=== PATIENT | female | born 1995 | race African-American/Black ===

== ENCOUNTER 2017-11-02 03:22 | Inpatient (IN) | payer OTHER ==
[2017-11-02] MEDS ORDERED: AMPICILLIN - 2 GM in SODIUM CHLORIDE 100 ML IVPB ONE (04:00)
[2017-11-02] MEDS: DEXTROSE 5%-LACTATED RINGERS 1,000 ML IV SCH (04:00)
[2017-11-02] MEDS ORDERED: PROMETHAZINE HCL 25 MG/1 ML VIAL ONE ×2 (04:12→10:03)
[2017-11-02] MEDS ORDERED: BUTORPHANOL TARTRATE 1 MG/ML VIAL ONE ×4 (04:12→10:03)
[2017-11-02 04:17] LABS: BASO % 0.2 % (0-2.0); EOS % 1.3 % (0-4.5); HEMATOCRIT 30.8 % (32.4-45.2); HEMOGLOBIN 10.1 GM/dL (10.7-15.3); LYMPH % 25.1 % (8-40); MCH 26.7 pg (25.7-33.7); MCHC 32.7 g/dl (32.0-36.0); MEAN CELL VOLUME 81.9 fl (80-96); MONO % 11.4 % (3.8-10.2); PLATELET COUNT 203 K/MM3 (134-434); RBC 3.76 M/mm3 (3.60-5.2); RDW 14.1 % (11.6-15.6); WHITE BLOOD COUNT 5.8 K/mm3 (4.0-10.0)
[2017-11-02 04:30] LABS: INR 0.9 (0.82-1.09); PROTHROMBIN TIME (PATIENT) 10.2 SEC (9.98-11.88)
[2017-11-02] MEDS ORDERED: BUTORPHANOL TARTRATE 1 MG/ML VIAL IVPB ONE ×2 (04:30→10:45)
[2017-11-02] MEDS ORDERED: PROMETHAZINE HCL 25 MG/1 ML VIAL IVPB ONE ×2 (04:30→10:45)
[2017-11-02 04:32] LABS: ACTIVATED PTT 26.8 SECONDS (26.9-34.4)
[2017-11-02 04:39] LABS: ANION GAP 13 (8-16); BLOOD UREA NITROGEN 6 mg/dL (7-18); CALCIUM 9.3 mg/dL (8.5-10.1); CHLORIDE 104 mmol/L (98-107); CO2 21 mmol/L (21-32); CREATININE 0.6 mg/dL (0.55-1.02); GLUCOSE,RANDOM 91 mg/dL (74-106); SODIUM 138 mmol/L (136-145)
[2017-11-02 05:20] VITALS: BMI 22.7
[2017-11-02] MEDS ORDERED: AMPICILLIN SODIUM 1 GM VIAL ONE ×2 (07:51→20:57)
[2017-11-02] MEDS: AMPICILLIN - 1 GM in SODIUM CHLORIDE 100 ML IVPB SCH ×3 (07:57→15:44)
[2017-11-02] MEDS ORDERED: TUBERCULIN PPD 5 TU/0.1ML SYRINGE (IN PATIENT USE ONLY) ID ONE (10:00)
--- NOTE | 2017-11-02 22:31 | PN ---
Ante-Partal Exam - Subjective Subjective: Pt sleeping Vital Signs: Vital Signs Temperature 98.6 F 11/02/17 22:00 Pulse Rate 77 11/02/17 22:00 Respiratory Rate 18 11/02/17 22:00 Blood Pressure 109/55 11/02/17 22:00 O2 Sat by Pulse Oximetry (%) Bleeding: No Headache: No Visual changes: No Right upper quadrant pain: No - Contractions Contractions: No Regularity: Irregular Intensity: Mild Monitor Mode: External - Exam during Labor Category: I Monitor Decelerations: None Exam: Vaginal Dilatation (cm): 5 Effacement (%): 90 Amniotic Membrane Status: Intact Presentation: Vertex Station: -1 - Intrapartum Hemorrhage Risk Risk Score: 0 Risk Level: Low Risk - Assessment/Plan Assessment/Plan: 37 week Cat 1 contractions Plan Continue observation
[2017-11-03] MEDS ORDERED: AMPICILLIN SODIUM 1 GM VIAL ONE ×5 (00:52→16:27)
[2017-11-03] MEDS: AMPICILLIN - 1 GM in SODIUM CHLORIDE 100 ML IVPB SCH ×7 (00:57→22:30)
[2017-11-03] MEDS: DEXTROSE 5%-LACTATED RINGERS 1,000 ML IV SCH ×2 (01:00→10:36)
[2017-11-03] MEDS ORDERED: DEXTROSE 5%-LACTATED RINGERS 1,000 ML IV ONE (01:00)
[2017-11-03] MEDS ORDERED: BUTORPHANOL TARTRATE 1 MG/ML VIAL IVPB ONE (16:45)
[2017-11-03] MEDS ORDERED: PROMETHAZINE HCL 25 MG/1 ML VIAL IVPB ONE (16:45)
[2017-11-03] MEDS ORDERED: BUTORPHANOL TARTRATE 1 MG/ML VIAL ONE ×2 (16:52)
[2017-11-03] MEDS ORDERED: PROMETHAZINE HCL 25 MG/1 ML VIAL ONE (16:53)
[2017-11-03] MEDS ORDERED: OXYTOCIN 20 UNITS in 0.9% NS 20 UNIT/1,000 ML INFUS.BAG IV ONE (19:02)
[2017-11-03] MEDS ORDERED: WITCH HAZEL 50% (TUCKS) 40 PAD/JAR PAD TP PRN (19:54)
[2017-11-03] MEDS ORDERED: BENZOCAINE 28 GM HEMORRHOIDAL OINTMENT TP PRN (19:54)
[2017-11-03] MEDS ORDERED: BENZOCAINE 20% 57 GM BOTTLE TP PRN (19:54)
[2017-11-03] MEDS ORDERED: METHYLERGONOVINE MALEATE 0.2 MG/1 ML AMP IM PRN (19:54)
[2017-11-03] MEDS ORDERED: BISACODYL 10 MG SUPP.RECT RC PRN (19:54)
--- NOTE | 2017-11-03 19:56 | PN ---
Delivery - Delivery Vaginal Delivery: Spontaneous Type of Anesthesia: Local Episiotomy/Laceration: None EBL (cc): 300 Delivery, Single - Orient Feeding Plan Initial Plan: Exclusive throughout hospitalization
[2017-11-03] MEDS ORDERED: OXYTOCIN 20 UNITS in 0.9% NS 20 UNIT/1,000 ML INFUS.BAG IV SCH (20:00)
[2017-11-03] MEDS ORDERED: IBUPROFEN 600 MG TABLET (FP) PO ONE (20:26)
[2017-11-03] MEDS ORDERED: ACETAMINOPHEN 325 MG TABLET (FP) ONE (20:26)
[2017-11-03] MEDS: IBUPROFEN 600 MG TABLET (FP) PO PRN (20:29)
[2017-11-03] MEDS: ACETAMINOPHEN 325 MG TABLET (FP) PO PRN (20:30)
[2017-11-04] MEDS: ACETAMINOPHEN 325 MG TABLET (FP) PO PRN ×2 (00:15→20:20)
[2017-11-04] MEDS: IBUPROFEN 600 MG TABLET (FP) PO PRN ×3 (00:16→20:19)
[2017-11-04 07:46] LABS: BASO % 0.3 % (0-2.0); EOS % 0.5 % (0-4.5); HEMATOCRIT 26.9 % (32.4-45.2); HEMOGLOBIN 8.6 GM/dL (10.7-15.3); LYMPH % 15.8 % (8-40); MCH 26.4 pg (25.7-33.7); MCHC 32.1 g/dl (32.0-36.0); MEAN CELL VOLUME 82.2 fl (80-96); MEAN PLT VOLUME 9.4 fl (7.5-11.1); MONO % 9.6 % (3.8-10.2); NEUT % 73.8 % (42.8-82.8); PLATELET COUNT 172 K/MM3 (134-434); RBC 3.27 M/mm3 (3.60-5.2); RDW 14.6 % (11.6-15.6)
[2017-11-04] MEDS: FERROUS SO4 325 MG TABLET (FP) PO SCH ×3 (08:32→17:49)
[2017-11-04] MEDS ORDERED: DIPHTH,PERTUSS(ACELL),TET 0.5 ML DISP.SYRIN IM ONE (10:00)
[2017-11-04] MEDS ORDERED: FLU VACC QS2017-18 36MOS UP/PF 60 MCG/0.5 ML SYRINGE IM ONE (10:00)
--- NOTE | 2017-11-04 11:36 | PN ---
Post Progress Note - Subjective Subjective: 22 yo Para 3 status post vaginal delivery, seen and evaluated. Doing well. Post Day: 1 Type of Delivery: Vital Signs: Vital Signs Temperature 98.5 F 11/04/17 08:00 Pulse Rate 75 11/04/17 08:00 Respiratory Rate 17 11/04/17 08:00 Blood Pressure 121/72 11/04/17 08:00 O2 Sat by Pulse Oximetry (%) 100 11/03/17 20:45 Breast Exam: Yes: Soft Uterus: Yes: Fundus Firm Abdomen/GI: Yes: Abdomen soft, Tolerating PO Lochia: Yes: Rubra Lochia, amount: Moderate Extremities: Yes: Calves non-tender Perineum: Yes: Intact Activity: Ambulating - Labs Labs: CBC WBC 9.0 K/mm3 (4.0-10.0) D 11/04/17 06:50 RBC 3.27 M/mm3 (3.60-5.2) L 11/04/17 06:50 Hgb 8.6 GM/dL (10.7-15.3) L D 11/04/17 06:50 Hct 26.9 % (32.4-45.2) L 11/04/17 06:50 MCV 82.2 fl (80-96) 11/04/17 06:50 MCH 26.4 pg (25.7-33.7) 11/04/17 06:50 MCHC 32.1 g/dl (32.0-36.0) 11/04/17 06:50 RDW 14.6 % (11.6-15.6) 11/04/17 06:50 Plt Count 172 K/MM3 (134-434) 11/04/17 06:50 MPV 9.4 fl (7.5-11.1) 11/04/17 06:50 Neutrophils % 73.8 % (42.8-82.8) 11/04/17 06:50 Lymphocytes % 15.8 % (8-40) D 11/04/17 06:50 Monocytes % 9.6 % (3.8-10.2) 11/04/17 06:50 Eosinophils % 0.5 % (0-4.5) 11/04/17 06:50 Basophils % 0.3 % (0-2.0) 11/04/17 06:50 Problem List - Problems (1) Status post normal vaginal delivery Code(s): [id number] - Assessment/Plan Status post vaginal delivery. Stable Continue routine care
[2017-11-04] MEDS: PRENATAL VITAMINS W/ FOLIC ACID TABLET (FP) PO SCH (11:50)
[2017-11-04] MEDS ORDERED: SENNOSIDES/DOCUSATE COMBO (SENNA PLUS) TABLET (UD) PO PRN (22:00)
[2017-11-05] MEDS: FERROUS SO4 325 MG TABLET (FP) PO SCH ×2 (09:09→12:48)
[2017-11-05] MEDS: PRENATAL VITAMINS W/ FOLIC ACID TABLET (FP) PO SCH (09:09)
[2017-11-05] MEDS: ACETAMINOPHEN 325 MG TABLET (FP) PO PRN (09:36)
[2017-11-05] MEDS: IBUPROFEN 600 MG TABLET (FP) PO PRN (09:39)
--- NOTE | 2017-11-05 10:11 | DS ---
Physical Exam-[employer] Vital Signs: Vital Signs Temperature 98.4 F 11/05/17 08:00 Pulse Rate 82 11/05/17 08:00 Respiratory Rate 18 11/05/17 08:00 Blood Pressure 117/67 11/05/17 08:00 O2 Sat by Pulse Oximetry (%) 100 11/03/17 20:45 Constitutional: Yes: Well Nourished Eyes: Yes: Conjunctiva Clear Neck: Yes: Supple Cardiovascular: Yes: Regular Rate and Rhythm Respiratory: Yes: Regular Gastrointestinal: Yes: Normal Bowel Sounds Pelvis: Yes: WNL External Genitalia: Yes: Normal Vaginal Exam: Yes: Normal Cervix: Yes: Normal Uterus: Yes: Firm ....Post : Yes: Uterus firm, Slight lochia rubra Breast(s): Yes: WNL Neurological: Yes: Alert, Oriented ...Motor Strength: WNL Psychiatric: Yes: Alert, Oriented Labs: CBC, BMP 11/04/17 06:50 11/02/17 04:05 Delivery - Delivery Vaginal Delivery: Spontaneous Type of Anesthesia: None Episiotomy/Laceration: None EBL (cc): 300 Delivery, Single - Stages of Labor Date 1st Stage Initiatied: 11/02/17 Time 1st Stage Initiated: 00:00 Date 2nd Stage Initiated: 11/03/17 Time 2nd Stage Initiated: 19:00 Date of Delivery: 11/03/17 Time of Delivery: 19:44 Time Placenta Delivered: 19:50 - 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 Nose / Oropharynx suctioned @ perineum. Cord clamped and cut. Placenta expelled spontaneously intact. Mother in stable condition. Discharge Summary Reason For Visit: LABOR Current Active Problems Status post normal vaginal delivery (Acute) Procedures: Principal: Spontaneous vaginal delivery Hospital Course: Routine care Condition: Good - Instructions Diet, Activity, Other Instructions: Regular diet No douching, no sexual intercourse x 6 weeks F/U with MD in 6 weeks Disposition: HOME - Home Medications Comprehensive Discharge Medication List: Ambulatory Orders Vit/Iron Fum/Folic AC [ Tablet] 1 each PO DAILY 02/19/15
[2017-11-05 13:21] VITALS: BP 127/72; PULSE 87; TEMP 98.7
== END 2017-11-05 15:30 | disposition home or self-care (01) | DRG 560 ==
LOC: JLDR 03:22 → J3W 11-03 21:18
PROVIDERS: ADMIT Obstetrics & Gynecology; ATTEND Obstetrics & Gynecology
PROC: 10E0XZZ Delivery of Products of Conception, External Approach (ICD-10-PCS; principal; 2017-11-03)
DX: O80 Encounter for full-term uncomplicated delivery (principal); Z3A.37 37 weeks gestation of pregnancy; Z37.0 Single live birth
CPT/HCPCS: 36415; 59409; 80048; 85025; 85610; 85730; 86593; 86850; 86900; 86901; 87389; 90686; 90715; G0008